=== PATIENT | male | born 1975 | race Caucasian/White ===

== ENCOUNTER 2017-05-24 00:12 | Emergency (ER) | payer MEDICAID ==
[~2017-05-24] VITALS: Ht 162.6 cm; Wt 76.4 kg
[2017-05-24] MEDS ORDERED: LIDOCAINE HCL 2% 5 ML JELLY TP ONE (00:45)
[2017-05-24] MEDS ORDERED: HYDROGEN PEROXIDE 118 ML SOLUTION TP ONE (01:15)
[2017-05-24 02:16] VITALS: BP 135/77
== END 2017-05-24 02:27 | disposition home or self-care (01) ==
LOC: EMS 00:14
DX: H61.22 Impacted cerumen, left ear (principal); R20.2 Paresthesia of skin; F15.90 Other stimulant use, unspecified, uncomplicated; F17.210 Nicotine dependence, cigarettes, uncomplicated
CPT/HCPCS: 99283

== ENCOUNTER 2017-06-17 04:50 | Emergency (ER) | payer MEDICAID ==
[~2017-06-17] VITALS: Ht 165.1 cm; Wt 70.5 kg
[2017-06-17 05:01] VITALS: BP 144/88
== END 2017-06-17 05:54 | disposition left against medical advice (07) ==
LOC: EMS 04:51
DX: R07.9 Chest pain, unspecified (principal); Z53.21 Procedure and treatment not carried out due to patient leaving prior to being seen by health care provider
CPT/HCPCS: 93005